=== PATIENT | female | born 1940 | race Caucasian/White ===

== ENCOUNTER 2017-02-07 17:28 | Emergency (ER) | payer MEDICARE, OTHER ==
[2017-02-07] MEDS ORDERED: NS 0.9% 1000 ML* 2,000 ML IV ONE (17:52)
--- NOTE | 2017-02-07 18:56 | ED ---
Rosa Angeles Salem, scribed for Param Juan MD on 02/07/17 at 1754 . HPI Chest Pain - HPI Summary HPI Summary: Patient is a 76 y/o female who presents to the ED per EMS s/p falling earlier today. She reports standing up from the toilet, losing her balance, feeling lightheaded, and then falling. (She has not felt lightheaded before this episode or since.) She denies SOB, syncope, or dysuria, but reports pain of the right ribs with deep breaths. She also denies any head trauma upon falling. Pt reports she is not on any blood thinners. Pt has Parkinsons and reports balance issues, but she states she is working with physical therapy. Pt is visiting from out of town. - History of Current Complaint Chief Complaint: EDChestWallPain Time Seen by Provider: 02/07/17 17:41 Hx Obtained From: Patient Onset/Duration: Started Hours Ago, Still Present Initial Severity: Moderate Current Severity: Moderate Pain Intensity: 4 Pain Scale Used: 0-10 Numeric Chest Pain Location: Right Anterior - Right ribs. Aggravating Factor(s): Deep Breaths Alleviating Factor(s): Nothing Associated Signs and Symptoms: Positive: Chest Pain. Negative: Shortness of Breath, Syncope - Allergy/Home Medications Allergies/Adverse Reactions: Allergies Allergy/AdvReac Type Severity Reaction Status Date / Time No Known Allergies Allergy Verified 02/07/17 17:38 PMH/Surg Hx/FS Hx/Imm Hx Endocrine/Hematology History: Denies: Hx Diabetes Neurological History: Reports: Other Neuro Impairments/Disorders - Parkinson's. Infectious Disease History: No Infectious Disease History: Denies: Traveled Outside the [place] in Last 30 Days - Family History Known Family History: Negative: Cardiac Disease, Diabetes - Social History Alcohol Use: Occasionally Alcohol Amount: pt reports having wine today Substance Use Type: Reports: None Smoking Status (MU): Light Every Day Tobacco Smoker Review of Systems Negative: Fever Positive: Chest Pain - of right rib with deep breaths. Negative: Shortness Of Breath Negative: burning, dysuria Negative: Syncope All Other Systems Reviewed And Are Negative: Yes Physical Exam - Summary Physical Exam Summary: The patient is well-nourished. The skin is warm and dry and skin color reflects adequate perfusion. HEENT: The head is normocephalic and atraumatic. The pupils are equal and reactive. The conjunctivae are clear and without drainage. Nares are patent and without drainage. Mouth reveals moist mucous membranes and the throat is without erythema and exudate. The external ears are intact. The ear canals are patent and without drainage. The tympanic membranes are intact. Neck is supple with full range of motion and non-tender. There are no carotid bruits. Respiratory: Lungs symmetrical when evaluated in anterior arellano. No subcutaneous emphysema. Cardiovascular: Heart is regular rate and rhythm. There is no murmur or rub auscultated. Abdomen: The abdomen is soft and non-tender. Liver non-tender. No tenderness in LUQ. Tenderness on right side of chest. Musculoskeletal: There is no back pain noted. Extremities are non-tender with full range of motion. There is good capillary refill. LLE edema. Neurological: Patient is alert and oriented to person, place and time. The patient has symmetrical motor strength in all four extremities. No Battles sign or raccoon eyes. No evidence of basal skull fracture. Psychiatric: The patient has an appropriate affect and does not exhibit any anxiety or depression, but presents with pressured speech. Triage Information Reviewed: Yes Vital Signs On Initial Exam: Initial Vitals Temp Pulse Resp BP Pulse Ox 97.1 F 76 17 125/66 94 02/07/17 17:37 02/07/17 17:37 02/07/17 17:37 02/07/17 17:37 02/07/17 17:37 Vital Signs Reviewed: Yes - Fatoumata Coma Scale Coma Scale Total: 15 Diagnostics - Vital Signs Vital Signs Temp Pulse Resp BP Pulse Ox 02/07/17 17:37 97.1 F 76 17 125/66 94 - Laboratory Lab Statement: Any lab studies that have been ordered have been reviewed, and results considered in the medical decision making process. - Radiology CXR Radiology Interpretation Completed By: Radiologist - see EMR pending reading. RIBS Radiology Interpretation Completed By: Radiologist - see EMR pending reading. - EKG 1399 EKG Interpretation: Sinus rhythm @ 76 bpm. No STEMI. LAD. Non-specific ST changes. Chest Pain Course/Dx - Chest Pain Differential Diagnosis/HQI/PQRI: Acute VT, Chest Wall, Other: - syncope, rib fracture, - Diagnoses Provider Diagnoses: Contusion of rib on right side, Lightheadedness Discharge - Discharge Plan Condition: Stable Disposition: OTHER Discharge Disposition Comment: Sign out to Dr. Mclaughlin. Pending labs and official readings of imaging. The documentation as recorded by the [email or web address] knight Salem accurately reflects the service I personally performed and the decisions made by me, Param Juan MD.
--- NOTE | 2017-02-07 19:00 | RAD ---
Indication: Right rib injury. 3 views of the right ribs demonstrates no fracture. No other bone or joint abnormality is identified. IMPRESSION: No fracture of the right ribs is noted.
--- NOTE | 2017-02-07 19:20 | RAD ---
Indication: Fall, right rib injury. 2 views of the chest demonstrates elevated right hemidiaphragm. Right basilar atelectasis is noted. No pleural fluid is identified. There is cardiomegaly noted. IMPRESSION: Right base atelectasis with no definite pneumonia. Cardiomegaly is noted.
[2017-02-07 19:21] LABS: Hematocrit 41 % (35-47); Hemoglobin 13.4 g/dl (12.0-16.0); Mean Corpuscular HGB Conc 33 g/dl (31-36); Mean Corpuscular Hemoglobin 33 pg (27-31); Mean Corpuscular Volume 101 fL (80-97); Mean Platelet Volume 8 um3 (7.4-10.4); Red Blood Count 4.09 10^6/ul (4.0-5.4); Red Cell Distribution Width 14 % (10.5-15); White Blood Count 8.7 10^3/ul (3.5-10.8)
[2017-02-07 20:22] LABS: Albumin 3.9 g/dL (3.2-5.2); BUN/Creatinine Ratio 30.9 (8-20); Calcium 9.5 mg/dL (8.6-10.3); EGFR African American 108.5 (>60); EGFR Non-African American 84.4 (>60); Globulin 2.8 g/dL (2-4); Total Bilirubin 0.5 mg/dL (0.2-1.0); Total Protein 6.7 g/dL (6.4-8.9)
[2017-02-07 20:23] LABS: Potassium 3.8 mmol/L (3.5-5.0)
[2017-02-07] MEDS ORDERED: Ketorolac INJ* 30 MG/ML 1 ML VIAL IV PUSH ONE (21:18)
[2017-02-07] MEDS ORDERED: Acetaminophen TAB* 325 MG PO ONE (23:58)
[2017-02-08 03:25] VITALS: BP 150/80
== END 2017-02-08 03:24 | disposition home or self-care (01) ==
LOC: ED 17:28
DX: S20.211A Contusion of right front wall of thorax, initial encounter (principal); R42 Dizziness and giddiness; R07.9 Chest pain, unspecified; W19.XXXA Unspecified fall, initial encounter; Y93.9 Activity, unspecified; Y92.89 Other specified places as the place of occurrence of the external cause; F17.210 Nicotine dependence, cigarettes, uncomplicated
CPT/HCPCS: 36415; 71020; 80053; 80320; 84484; 85025; 93005; 99283; A9270-GY; G0480; J1885